=== PATIENT | female | born 1995 | race African-American/Black ===

== ENCOUNTER 2016-11-25 14:20 | Emergency (ER) | payer MEDICAID ==
[2016-11-25 14:27] VITALS: TEMP 98.2
[2016-11-25] MEDS ORDERED: DEXAMETHASONE 4 MG TAB PO ONE (16:17)
[2016-11-25] MEDS ORDERED: KETOROLAC 30 MG/1 ML SDV IM ONE (16:17)
--- NOTE | 2016-11-25 16:17 | EDPHY ---
General Narrative: CHIEF COMPLAINT: Low back pain, sciatica HISTORY OF PRESENT ILLNESS: Patient complains of low back pain on the left lateral side, consistent with previous sciatica. She says she has had this going on for months. She has been under the care of physical therapist. This was doing well for her till Sunday. After physical therapy session on Sunday, she reports increasing pain. This is soft tissue the left lower back. No midline tenderness. No saddle anesthesia. No incontinence of bowel or bladder. The pain is moderate to severe. Radiates to the left lateral thigh. No weakness. No trauma or injury. No other associated complaints. Minimal improvement with ibuprofen. ESTABLISHED physician: Dr. Trujillo REVIEW OF SYSTEMS: Ten systems reviewed and are negative unless otherwise noted in the HPI PAST MEDICAL HISTORY: Sciatica, anxiety PAST SURGICAL HISTORY: None SOCIAL HISTORY: Nonsmoker. Occasional alcohol. No illicit substance use. FAMILY HISTORY: Noncontributory EXAMINATION General Appearance: Alert, no distress Cardiovascular: Pulses normal throughout. Brisk cap refill Back: Normal appearance. No midline tenderness of the cervical, thoracic or lumbar spine. No crepitus, step-off or deformity. There is soft tissue tenderness of the left lateral back over the piriformis. Neurological: A&O, sensory symmetric, strength symmetric. Patellar reflexes symmetric. No wrist drop. Good strength of the lower extremities that is symmetric at 5/5 Skin: Warm and dry, no rash. No petechiae or purpura Extremities: Nontender, no pedal edema. Symmetric range of motion lower extremities with history Psychiatric: Mood and affect normal DIFFERENTIAL DIAGNOSES: Including but not limited to sciatica, lumbar radiculopathy, pyelo, UTI MDM: 4:15 p.m. Left-sided sciatica with some radiculopathy. No saddle anesthesia. No incontinence of bowel or bladder. No urinary complaints. No flank pain. Pain is completely reproducible over the left piriformis muscle. I will switch her from Flexeril to Skelaxin. I will give her a short burst of steroid. I will provide a short course of pain medication. I would like her to follow up with her established primary care physician to discuss possible referral for MRI. ED precautions discussed she developed any saddle anesthesia, incontinence of bowel or bladder, weakness of the lower extremities. She is comfortable this plan. She is ambulatory. She is discharged in stable condition ED Precautions: Worsening pain. Erythema, edema, cyanosis, pallor, paresthesia or anesthesia. - History Smoking Status: Never smoked - Objective Vital Signs: Initial Vital Signs Temperature (C) 98.2 F 11/25/16 14:25 Heart Rate 113 H 11/25/16 14:25 Respiratory Rate 18 11/25/16 14:25 Blood Pressure 127/73 H 11/25/16 14:25 O2 Sat (%) 97 11/25/16 14:25 O2 Delivery Mode Room Air Allergies/Adverse Reactions: No Known Allergies Allergy (Unverified 11/25/16 14:27) Home Medications: Medication Instructions Recorded Buspar (*) 11/25/16 Hydrocodone/APAP 5/325 [Trevett 1 - 2 tab PO Q4H PRN #9 tab 11/25/16 5/325 (*)] Lexapro 11/25/16 Metaxalone [Skelaxin 800 mg (*)] 800 mg PO TID PRN #12 tab 11/25/16 Medications Given: Discontinued Medications Dexamethasone (Decadron) 8 mg PO EDNOW ONE Stop: 11/25/16 16:18 Last Admin: 11/25/16 16:21 Dose: 8 mg Ketorolac Tromethamine (Toradol) 30 mg IM EDNOW ONE Stop: 11/25/16 16:18 Last Admin: 11/25/16 16:21 Dose: 30 mg Departure - Departure Disposition: Home, Routine, Self-Care Clinical Impression: Left sided sciatica Condition: Good Instructions: Sciatica (ED), Lumbar Radiculopathy (ED), Piriformis Syndrome (ED ), Lower Back Exercises (ED) Additional Instructions: 1. Discontinue Flexeril 2. Decadron 1 dose here in the ER and 1 dose tomorrow morning as prescribed 3. Switch to Skelaxin as prescribed as needed 4. Contact primary care physician on Sunday for further care 5. ED precautions as discussed for worsening pain, weakness, anesthesia, incontinence of bowel or bladder Referrals: Ely Trujillo MD [Primary Care Provider] - As per Instructions Prescriptions: Hydrocodone/APAP 5/325 [Trevett 5/325 (*)] 1 - 2 tab PO Q4H PRN #9 tab PRN Reason: Pain, Moderate Metaxalone [Skelaxin 800 mg (*)] 800 mg PO TID PRN #12 tab PRN Reason: Spasms
[2016-11-25 16:31] VITALS: BP 108/64; PULSE 68; RESP 16; O2SAT 98
== END 2016-11-25 16:30 | disposition home or self-care (01) ==
DX: M54.32 Sciatica, left side (principal)
CPT/HCPCS: J1885

== ENCOUNTER → 2016-12-09 | Outpatient (CLI) | payer MEDICAID | LOC: FIMAGING 08:37 | PROVIDERS: ATTEND Family Medicine | DX: M54.16 Radiculopathy, lumbar region (principal); M51.26 Other intervertebral disc displacement, lumbar region; M51.27 Other intervertebral disc displacement, lumbosacral region ==